=== PATIENT | male | born 1970 | race Caucasian/White ===

== ENCOUNTER 2016-10-05 13:28 | Emergency (ER) | payer MEDICAID ==
--- NOTE | 2016-10-05 14:03 | EDPHY ---
H & P Stated Complaint: RFA INFECTION X3 DAYS, MISSED HEROIN INJECTION Source: Patient Exam Limitations: No limitations - Personal History Current Tetanus/Diphtheria Vaccine: Yes Current Tetanus Diphtheria and Acellular Pertussis (TDAP): Yes - Medical/Surgical History Hx Asthma: No Hx Chronic Respiratory Disease: No Hx Diabetes: No Hx Cardiac Disease: No Hx Renal Disease: No Hx Cirrhosis: No Hx Alcoholism: No Hx HIV/AIDS: No Hx Splenectomy or Spleen Trauma: No Other PMH: PMH- IVDA, HEP C - Social History Smoking Status: Current every day smoker Time Seen by Provider: 10/05/16 13:40 HPI/ROS: CHIEF COMPLAINT: right forearm abscess HISTORY OF PRESENT ILLNESS: 46-year-old male presents emergency department with pain, redness and swelling to his right forearm x3 days. Patient was injecting 5 days ago into this same location, he states 3 days ago started redness, pain and swelling that has progressed. He denies fevers or chills, no nausea or vomiting, no other complaints. No numbness or tingling in this hand. Tetanus is up-to-date. REVIEW OF SYSTEMS: A comprehensive 10 point review of systems is otherwise negative aside from elements mentioned in the history of present illness. (Zeinab Dent) - Physical Exam Exam: GEN: Awake, alert, oriented, no acute distress RESP: nl resp effort MSK: Right ventral distal forearm with 3 cm x 3 cm area of erythema, induration and swelling with tenderness to palpation, with surrounding erythema that does not extend past mid forearm, 2+ radial pulses, sensation intact to light touch, no lymphangitic streaking, full range of motion of right wrist, no evidence of a tenosynovitis. (Zeinab Dent) Constitutional: Initial Vital Signs Temperature (C) 36.8 C 10/05/16 13:29 Heart Rate 107 H 10/05/16 13:29 Respiratory Rate 18 10/05/16 13:29 Blood Pressure 101/70 10/05/16 13:29 O2 Sat (%) 94 10/05/16 13:29 O2 Delivery Mode Room Air Allergies/Adverse Reactions: haloperidol [From Haldol] Allergy (Verified 10/05/16 13:30) haloperidol lactate [From Haldol] Allergy (Verified 10/05/16 13:30) Home Medications: Medication Instructions Recorded Cephalexin [Keflex] 500 mg PO QID 5 Days 10/05/16 Hydrocodone/APAP 5/325 [[place] 1 tab PO Q4H PRN #7 tab 10/05/16 5/325] Sulfamethox/Tmp 800/160 mg 1 tab PO BID #14 tab 10/05/16 [Bactrim Ds] Medical Decision Making Procedures: Procedure: Incision and Drainage abscess. The patient's abscess was located on the right wrist. Risks, benefits, alternatives discussed with the patient and consent obtained. The area was prepped and draped in sterile fashion. The patient received local anesthesia with 1% lidocaine with epinephrine. The abscess was incised with a #11 blade and purulent drainage was expressed. The patient tolerated the procedure well. The procedure was performed by myself. (Zeinab Dent) Other Provider: PHYSICIAN DOCUMENTATION: The patient was evaluated and managed by the Physician Shift Manager. My co- signature indicates that I have reviewed this chart and I agree with the findings and plan of care as documented. I am the secondary supervising physician. (Bao Porras) - Data Points Medications Given: Discontinued Medications Acetaminophen/Hydrocodone Bitart ([place] 5/325) 1 tab PO EDNOW ONE Stop: 10/05/16 14:46 Last Admin: 10/05/16 14:55 Dose: 1 tab Ibuprofen (Motrin) 600 mg PO EDNOW ONE Stop: 10/05/16 14:46 Last Admin: 10/05/16 14:55 Dose: 600 mg Departure - Departure Clinical Impression: Abscess or cellulitis of wrist Instructions: Abscess (ED), Incision and Drainage (ED) Additional Instructions: Warm compresses to your wrist 5 times a day for 10 minutes. Take your antibiotics as prescribed. Return to the emergency department for worsening symptoms, spreading of redness. Take 600 mg of ibuprofen every 8 hours with food for 3-5 days, take [place] as needed for severe pain. Referrals: [facility] [Outside] - As per Instructions Prescriptions: Sulfamethox/Tmp 800/160 mg [Bactrim Ds] 1 tab PO BID #14 tab Cephalexin [Keflex] 500 mg PO QID 5 Days Hydrocodone/APAP 5/325 [[place] 5/325] 1 tab PO Q4H PRN #7 tab PRN Reason: Pain, Moderate
[2016-10-05] MEDS ORDERED: HYDROCODONE/APAP 5/325 TAB PO ONE (14:45)
[2016-10-05] MEDS ORDERED: IBUPROFEN 600 MG TAB PO ONE (14:45)
[2016-10-05 14:55] VITALS: BP 128/91; PULSE 95; RESP 16; TEMP 97.9; O2SAT 98
== END 2016-10-05 15:24 | disposition home or self-care (01) ==
PROC: 0H9DXZZ Drainage of Right Lower Arm Skin, External Approach (ICD-10-PCS; principal; 2016-10-05)
DX: L02.413 Cutaneous abscess of right upper limb (principal); F17.200 Nicotine dependence, unspecified, uncomplicated